=== PATIENT | female | born 2000 | race African-American/Black ===

== ENCOUNTER 2019-04-30 15:53 | Emergency (ER) | payer OTHER ==
[~2019-04-30] VITALS: Ht 172.7 cm; Wt 77.1 kg
--- NOTE | 2019-04-30 16:30 | NUR ---
ED Nurse Note: pt walked in due to pain on the left knee, pt stated she slipped and fell yesterday on the workplace, denies head trauma, no loc. pt stated she felt her left knee popped. will continue to monitor
[2019-04-30] MEDS ORDERED: HYDROcodone/Acetamin 5/325 tab ORAL ONE (16:45)
--- NOTE | 2019-04-30 16:56 | NUR ---
ED Nurse Note: pt was medicated as ordered. pt able to tolerate. will continue to monitor.
--- NOTE | 2019-04-30 18:28 | Emergency Room Report ---
History of Present Illness General Chief Complaint: Lower Extremity Injury Source: Patient Present Illness HPI 18-year-old female presents to the emergency department complaining of 7 out of 10 severity pain swelling and inability to bear weight on the left knee status post mechanical slip and fall at work yesterday at night. Patient denies hitting her head or having a loss of consciousness she denies midline neck or back pain. Patient reports feeling a pop sensation in her knee. Denies numbness tingling or loss of sensation or gross motor movements of the extremities, incontinence of bowel or bladder. Denies CP, Palpitations, LOC, AMS , dizziness, Changes in Vision, weakness or a sudden severe headache. Allergies: Coded Allergies: No Known Allergies (Unverified , 04/30/19) Patient History Past Medical History: see triage record Past Surgical History: none Pertinent Family History: none Last Menstrual Period: STARTED TODAY Now: No Reviewed Nursing Documentation: PMH: Agreed; PSxH: Agreed Nursing Documentation-PMH Past Medical History: No Stated History Review of Systems All Other Systems: negative except mentioned in HPI Physical Exam Vital Signs Date Time Temp Pulse Resp B/P (MAP) Pulse Ox O2 Delivery O2 Flow Rate FiO2 04/30/19 16:02 98.1 73 15 141/88 (105) 100 Room Air Sp02 EP Interpretation: reviewed, normal General Appearance: alert, GCS 15, non-toxic, mild distress Head: normocephalic, atraumatic Eyes: bilateral eye normal inspection, bilateral eye PERRL ENT: hearing grossly normal, normal voice Neck: full range of motion Respiratory: lungs clear, normal breath sounds, speaking full sentences Cardiovascular #1: regular rate, rhythm, no edema, normal capillary refill Cardiovascular #2: 2+ dorsalis pedis (R), 2+ dorsalis pedis (L) Musculoskeletal: back normal, gait/station normal - compensatory favoring the left leg. , normal range of motion, tender - TTP, swelling to the left knee anteriorly. negative anterior or posterior drawer signs. mild increased laxity with Varus stressing pain as well. some palpable effusion and patella appears high riding. able to fully extend leg. pain with flexion. Neurologic: alert, oriented x3, responsive, motor strength/tone normal, sensory intact, speech normal, grossly normal Psychiatric: judgement/insight normal Medical Decision Making PA Attestation Dr. Le Is my supervising Physician whom patient management has been discussed with. Diagnostic Impression: Primary Impression: Left knee sprain Qualified Codes: S83.92XA - Sprain of unspecified site of left knee, initial encounter Additional Impression: Patellar tendon strain Qualified Codes: S86.812A - Strain of other muscle(s) and tendon(s) at lower leg level, left leg, initial encounter ER Course 18-year-old female presents to the emergency department complaining of 7 out of 10 severity pain swelling and inability to bear weight on the left knee status post mechanical slip and fall at work yesterday at night. Patient denies hitting her head or having a loss of consciousness she denies midline neck or back pain. Patient reports feeling a pop sensation in her knee. Denies numbness tingling or loss of sensation or gross motor movements of the extremities, incontinence of bowel or bladder. Denies CP, Palpitations, LOC, AMS , dizziness, Changes in Vision, weakness or a sudden severe headache. Ddx considered but are not limited to Fracture, dislocation, contusion, Sprain/ Strain/Spasm, ligamental/tendon injury just to name a few Vital signs: are WNL, pt. is afebrile H&PE are most consistent with musculoskeletal injury will perform imaging to r/ o fractures/dislocations. ORDERS: - X-ray Left knee 3 views - Positive for effusion and high riding patella. Negative for fx, Dislocation, or significant soft tissue injury, per preliminary read in ED, and signed by BEBE Gregg, my supervising physician has reviewed, and agrees with my interpretation. ED INTERVENTIONS: - [place] PO -Knee Immobilizer splint applied to the left Knee by crane service technician. Pt. remains neurovascularly intact. --Patient is provided with crutches and instructed on their use DISCHARGE: At this time pt. is stable for d/c to home. Will provide printed patient care instructions, and any necessary prescriptions. Care plan and follow up instructions have been discussed with the patient prior to discharge. Other X-Ray Diagnostic Results Other X-Ray Diagnostic Results : X-Ray ordered: Left Knee # of Views/Limited Vs Complete: 3 View Indication: Swelling EP Interpretation: Yes BEBE Xray: Interpretation reviewed, by supervising MD, and agrees with findings. Interpretation: no dislocation, no fractures, other - Positive for effusion and high riding patella Impression: Other - abnormal Electronically Signed by: Cheryl Gregg PA-C Last Vital Signs Date Time Temp Pulse Resp B/P (MAP) Pulse Ox O2 Delivery O2 Flow Rate FiO2 04/30/19 16:02 98.1 73 15 141/88 (105) 100 Room Air Status: improved Disposition: HOME, SELF-CARE Condition: Stable Scripts Hydrocodone Bit/Acetaminophen 5-325* (NORCO 5-325*) 1 Each Tablet 1 TAB ORAL Q8HR PRN for For Pain for 5 Days, #15 TAB 0 Refills Prov: Cheryl Gregg 04/30/19 Ibuprofen* (MOTRIN*) 600 Mg Tablet 600 MG ORAL THREE TIMES A DAY, #30 TAB 0 Refills Prov: Cheryl Gregg 04/30/19 Departure Forms: Return to Work Return to Work Date: May 07, 2019 Work Restrictions: No Heavy Lifting, No Prolonged Standing Other Restrictions: Needs Orthopedic Follow up before returning to full duty. Return to Full Activity: May 07, 2019 Patient Instructions: Knee Sprain Additional Instructions: Take medications as directed. Follow up with an HEEL COVERER MACHINE OPERATOR in 3-5 days, even if your symptoms have resolved. If symptoms persist MRI may be required at the discretion of your PCP or Ortho Specialist. --Please review list of primary care clinics, if you do not already have a primary care provider who can give you an Orthopedic Referral. Return sooner to ED if new symptoms occur, or current symptoms become worse. Do not drink alcohol, drive, or operate heavy machinery while taking [place] as this may cause drowsiness. - Please note that this Emergency Department Report was dictated using [employer] specialist technology software, occasionally this can lead to erroneous entry secondary to interpretation by the dictation equipment. Cheryl Gregg Apr 30, 2019 18:27
[2019-04-30] MEDS ORDERED: IBUPROFEN600 MG ORAL (18:30)
[2019-04-30] MEDS ORDERED: NORCO 5-325 TA1 EACH ORAL (18:30)
[2019-04-30 18:53] VITALS: BP 135/84
--- NOTE | 2019-04-30 18:53 | NUR ---
ER DISCHARGE NOTE: Patient is cleared to be discharged per ERMD, pt is aox4, on room air, with stable vital signs. pt was given dc and prescription instructions, pt was able to verbalize understanding, pt id band removed without complications. pt is able to ambulate with steady gait. pt took all belongings.
--- NOTE | 2019-05-01 11:28 | Diagnostic Imaging Report ---
Indication: Left knee pain Technique: 3 views of the left knee Comparison: None Findings: No acute fractures. No dislocations. The joint spaces are preserved. No suprapatellar effusion Impression: No acute process
== END 2019-04-30 18:53 | disposition home or self-care (01) ==
LOC: EMR 17:49
DX: S83.92XA Sprain of unspecified site of left knee, initial encounter (principal); S76.112A Strain of left quadriceps muscle, fascia and tendon, initial encounter; W01.0XXA Fall on same level from slipping, tripping and stumbling without subsequent striking against object, initial encounter; Y92.89 Other specified places as the place of occurrence of the external cause
CPT/HCPCS: 29505; 99283